=== PATIENT | male | born 1940 | race Two or more races ===

== ENCOUNTER → 2016-11-24 | Day surgery (SDC) | payer MEDICARE ==
[~2016-11-24] MED LIST: ASPI81 PO; CORE25TA PO; FURO1TAB93 PO; GLUC10TA3 PO; LACTATED RINGER'S 1000 ML INJ 1,000 ML ONE; POTA-243 PO; PRIN5TAB PO; PROPOFOL 500 MG/50 ML BTL IV ONE; SPIR25TA PO
--- NOTE | 2016-11-24 14:58 | GIPROC ---
[facility] [address] [facility], [address] COLONOSCOPY PROCEDURE REPORT EXAM DATE: 11/24/2016 PATIENT NAME: Sedrick Castorena MR #: [id number] BIRTHDATE: 1940 ENDOSCOPIST: Gregory Ulrich MD ORDER #: [id number] RN WOUND: Jailene Felipe RN STATUS: outpatient INDICATIONS: The patient is a 76 yr old male here for a colonoscopy due to abdominal pain and bloating PROCEDURE PERFORMED: Colonoscopy with biopsy Colonoscopy with polypectomy MEDICATIONS: None and Per Anesthesia. PREP QUALITY: fair ESTIMATED BLOOD LOSS: None CONSENT: The patient understands the risks and benefits of the procedure and understands that these risks include, but are not limited to: sedation, allergic reaction, infection, perforation and/or bleeding. Alternative means of evaluation and treatment include, among others: physical exam, x-rays, and/or surgical intervention. The patient elects to proceed with this endoscopic procedure. medical equipment was checked for proper function. Hand hygiene and appropriate measures for infection prevention was taken. After the risks, benefits and alternatives of the procedure were thoroughly explained, Informed consent was verified, confirmed and timeout was successfully executed by the treatment team. A digital exam revealed no abnormalities of the rectum The EC-3490Li ([id number] endoscope was introduced through the anus and advanced to the cecum, which was identified by both the appendix and ileocecal valve. The instrument was then slowly withdrawn as the colon was fully examined. COLON FINDINGS: Mild diverticulosis was noted throughout the entire examined colon. 2 polyps in ascending colon, 1 cm each removed by hot snare. 1 cm polyp in the sigmoid removed snare. The colon mucosa was otherwise normal. Prominant ileocecal valve bx done. Retroflexed views revealed small internal hemorrhoids The scope was then completely withdrawn from the patient and the procedure terminated. ADVERSE EVENTS: There were no complications. IMPRESSIONS: 1. Mild diverticulosis was noted throughout the entire examined colon 2. 2 polyps in ascending colon, 1 cm each removed by hot snare 3. 1 cm polyp in the sigmoid removed snare 4. The colon mucosa was otherwise normal 5. Prominant ileocecal valve bx done 6. Retroflexed views revealed small internal hemorrhoids 7. Revealed no abnormalities of the rectum RECOMMENDATIONS: 1. Await biopsy results. Biopsy results will not be ready for 7-10 days. If you don't hear from us in two weeks, call our office for results. 2. Yearly hemoccult 3. High fiber diet RECALL: Return 1 year Colonoscopy Gregory Ulrich MD eSigned: Gregory Ulrich MD 11/24/2016 2:58 PM cc: Brady Romano M.D. PATIENT NAME: Sedrick Castorena MR#: [id number]
--- NOTE | 2016-11-24 15:02 | GIPROC ---
[facility] [address] [facility], [address] EGD PROCEDURE REPORT EXAM DATE: 11/24/2016 PATIENT NAME: Sedrick Castorena MR #: [id number] BIRTHDATE: 1940 ATTENDING: Gregory Ulrich MD ORDER #: [id number] LOCKER ROOM SUPERVISOR: Jailene Felipe RN STATUS: outpatient INDICATIONS: The patient is a 76 yr old male here for an EGD due to abdominal pain and dyspepsia PROCEDURE PERFORMED: EGD w/ biopsy MEDICATIONS: None and Per Anesthesia. TOPICAL ANESTHETIC: none CONSENT: The patient understands the risks and benefits of the procedure and understands that these risks include, but are not limited to: sedation, allergic reaction, infection, perforation and/or bleeding. Alternative means of evaluation and treatment include, among others: physical exam, x-rays, and/or surgical intervention. The patient elects to proceed with this endoscopic procedure. medical equipment was checked for proper function. Hand hygiene and appropriate measures for infection prevention was taken. After the risks, benefits and alternatives of the procedure were thoroughly explained, Informed consent was verified, confirmed and timeout was successfully executed by the treatment team. The patient was anesthetized with topical anesthesia and the EC-3490Li ([id number]) endoscope was introduced through the mouth and advanced to the second portion of the duodenum. Retroflexed views revealed no abnormalities The gastroscope was then slowly withdrawn and removed. Multiple nodules in the duodenum and duodenitis Bx done from the bulb. Gastritis bx from antrum to R/O H pylori. Esophagitis grade c Bx done. The endoscopy was otherwise normal. ADVERSE EVENTS: There were no complications. IMPRESSIONS: 1. Multiple nodules in the duodenum and duodenitis Bx done from the bulb 2. Gastritis bx from antrum to R/O H pylori 3. Esophagitis grade c Bx done 4. Normal endoscopy otherwise 5. Retroflexed views revealed no abnormalities RECOMMENDATIONS: 1. Await biopsy results. Biopsy results will not be ready for 7-10 days. If you don't hear from us in two weeks, call our office for biopsy results. 2. Anti-reflux regimen 3. Avoid NSAIDS 4. Protonix 40mg Q AM PATIENT CONDITION: stable DISPOSITION: Home REPEAT EXAM: Return as needed for EGD Gregory Ulrich MD eSigned: Gregory Ulrich MD 11/24/2016 3:01 PM cc: Brady Romano M.D. PATIENT NAME: Sedrick Castorena MR#: [id number]
== END | disposition home or self-care (01) ==
LOC: ESDC 12:47
PROVIDERS: ATTEND Hospitalist
DX: R10.9 Unspecified abdominal pain (principal); R14.0 Abdominal distension (gaseous); K57.90 Diverticulosis of intestine, part unspecified, without perforation or abscess without bleeding; D12.2 Benign neoplasm of ascending colon; D12.5 Benign neoplasm of sigmoid colon; K29.70 Gastritis, unspecified, without bleeding; K20.9 Esophagitis, unspecified; K29.80 Duodenitis without bleeding; K31.89 Other diseases of stomach and duodenum; E11.9 Type 2 diabetes mellitus without complications; Z79.84 Long term (current) use of oral hypoglycemic drugs
CPT/HCPCS: 00740; 00810; 43239; 45380; 45385; 82948; 88305; 88312; J7120